=== PATIENT | female | born 1965 | race African-American/Black ===

== ENCOUNTER 2017-07-08 06:02 | Emergency (ER) | payer MEDICARE, OTHER ==
[~2017-07-08] VITALS: Ht 167.6 cm; Wt 80.4 kg
[~2017-07-08 06:02] MED LIST: ATOR10TA15 PO; LEVO75TA3 PO; MECL-62 PO; MOTR200T PO; PRED2.5T PO; ZOLP10TA3 PO
[2017-07-08 06:06] VITALS: BP 140/89; PULSE 115; RESP 20; TEMP 99.5; O2SAT 97
[2017-07-08 06:12] VITALS: BP 140/89; PULSE 115; RESP 20; TEMP 99.5; O2SAT 97
[2017-07-08] MEDS ORDERED: diphenhydrAMINE HCL 50 MG/ML VIAL IVP ONE (06:15)
[2017-07-08] MEDS ORDERED: SODIUM CHLORIDE 0.9% FLUSH 10 ML FLUSH IV FLUSH PRN (06:15)
[2017-07-08] MEDS ORDERED: EPINEPHrine HCL (1:1000) 1 MG/ML VIAL IM ONE (06:15)
[2017-07-08] MEDS ORDERED: methylPREDNISolone SOD SUCC 125 MG/2 ML VIAL IV PUSH ONE (06:15)
[2017-07-08] MEDS ORDERED: FAMOTIDINE 20 MG/2 ML VIAL IV PUSH ONE (06:15)
--- NOTE | 2017-07-08 06:22 | PD ---
HPI Chief Complaint: Allergic/Adverse Reaction Time Seen by Provider: 06:13 Travel History International Travel<30 days: No Contact w/Intl Traveler<30days: No Traveled to known affect area: No History of Present Illness HPI 51-year-old female presents to the emergency department by private transportation for complaint of progressively worsening urticarial allergic reaction since Friday. Patient is not aware of what may be the precipitating allergen. Patient denies any medications foods detergents pets dander. Patient denies any pain. Patient denies any lip tongue or throat swelling but has noted some tingling in her lips which is noted. Patient denies any shortness of breath or wheezing. Patient denies any chest pain or near syncope. Patient has taken Benadryl without relief of symptoms. Patient denies other concerns or complaints although patient does have chronic seasonal and environmental allergens that are also problematic at this time. PFSH Past Medical History Narrative Medical Dyslipidemia Sarcoidosis hypothyroidism vertigo seasonal/environmental allergens hysterectomy no tobacco use nursing notes reviewed Cancer: No Cardiovascular Problems: No Diabetes: No Diminished Hearing: No Endocrine: Yes Genitourinary: No Hepatitis: No Hiatal Hernia: No Immune Disorder: No Musculoskeletal: No Neurologic: Yes (VERTIGO (EAR CRYSTAL ISSUES) RESOLVED) Psychiatric: No Reproductive: No Respiratory: Yes (HEMOPTYSIS, ?SARCOID) Thyroid Disease: Yes Past Surgical History AICD: No Gynecologic Surgery: Yes (HYSTERECTOMY) Hysterectomy: Yes Joint Replacement: No Pacemaker: No Social History Alcohol Use: No Tobacco Use: No Substance Use: No Allergies-Medications (Allergen,Severity, Reaction): Coded Allergies: naproxen (Unverified Allergy, Intermediate, NAUSEA/VOMITING, 07/08/17) 12/06/15 DENIES ALLERGY Sulfa (Sulfonamide Antibiotics) (Unverified Allergy, Unknown, 07/08/17) 09/12/15 DENIES ALLERGY *MDRO Multi-Drug Resistant Organism (Verified Adverse Reaction, Unknown, 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 Reported Meds & Prescriptions Reported Meds & Active Scripts Active Epipen 2-Bird Inj (Epinephrine) 0.3 Mg/0.3 Ml Pfpen 0.3 Mg IM ONCE PRN Medrol Dosepak (Methylprednisolone) 4 Mg Dspk 4 Mg PO DIRECTED Per Pharmacist direction Reported Hydroxyzine HCl 50 Mg Tab 50 Mg PO BID Baclofen 10 Mg Tab 10 Mg PO Q8HR Pantoprazole (Pantoprazole Sodium) 40 Mg Tab 40 Mg PO DAILY Ibuprofen 800 Mg Tab 800 Mg PO Q6HR PRN Symbicort Inh (Budesonide/Formoterol Fumarate) 80-4.5 Mcg/Act Aero 2 Puff INH Q12HR Levothyroxine (Levothyroxine Sodium) 50 Mcg Tab 50 Mcg PO DAILY Review of Systems Except as stated in HPI: all other systems reviewed are Neg Physical Exam Narrative GENERAL: Well-developed well-nourished female in no acute distress no respiratory distress; no stridor or hoarseness. SKIN: Warm and dry. Diffuse urticaria HEAD: Normocephalic. EYES: No scleral icterus. No injection or drainage. NECK: Supple, trachea midline. No JVD or lymphadenopathy. CARDIOVASCULAR: Increased Regular rate and rhythm without murmurs, gallops, or rubs. RESPIRATORY: Breath sounds equal bilaterally. No accessory muscle use. GASTROINTESTINAL: Abdomen soft, non-tender, nondistended. MUSCULOSKELETAL: No cyanosis, or edema. BACK: Nontender without obvious deformity. No CVA tenderness. Data Data Last Documented VS Vital Signs Date Time Temp Pulse Resp B/P (MAP) Pulse Ox O2 Delivery O2 Flow Rate FiO2 07/08/17 06:39 98 07/08/17 06:33 108 07/08/17 06:15 Room Air 07/08/17 06:12 99.5 20 Orders Orders Ecg Monitoring (07/08/17 06:13) Iv Access Insert/Monitor (07/08/17 06:13) Oximetry (07/08/17 06:13) Diphenhydramine Inj (Benadryl Inj) (07/08/17 06:15) Methylprednisolone So Succ Inj (Solumedr (07/08/17 06:15) Famotidine Inj (Pepcid Inj) (07/08/17 06:15) Sodium Chloride 0.9% Flush (Ns Flush) (07/08/17 06:15) Epinephrine (1:1000) Inj (Adrenalin (1:1 (07/08/17 06:15) MDM Medical Decision Making Medical Screen Exam Complete: Yes Emergency Medical Condition: Yes Medical Record Reviewed: Yes Differential Diagnosis Acute allergic reaction, idiopathic urticaria, adverse medication reaction Narrative Course Patient placed on cardiac exercise specialist IV access obtained with continuous pulse oximetry patient administered Epi 1:1000 given 0.3 ml IM Benadryl 25 mg IV Solu- Medrol 125 mg IV and Pepcid 20 mg IV Diagnosis Primary Impression: Acute allergic reaction Qualified Codes: T78.40XA - Allergy, unspecified, initial encounter Referrals: Primary Care Physician call for appointment Patient Instructions: General Instructions Additional Instructions: Increase fluid hydration Take Benadryl 25-50 mg as often as every 4-6 hours as needed for hives or allergic reaction Takes Zantac 150 twice daily for 7 days Complete course of steroid as prescribed as taper Take EpiPen and use as needed for acute allergic reaction to the nearest emergency department Follow-up with her primary care provider No work 2 days Increase fluid hydration avoid hot foods and beverages Med/Other Pt SpecificInfo: Prescription(s) given Scripts Epinephrine Inj (Epipen 2-Bird Inj) 0.3 Mg/0.3 Ml Pfpen 0.3 MG IM ONCE Y for ALLERGIC REACTION, #1 PACK 0 Refills Prov: Buffy Anton MD 07/08/17 Methylprednisolone Dosepak (Medrol Dosepak) 4 Mg Dspk 4 MG PO DIRECTED, #1 DSPK 0 Refills Per Pharmacist direction Prov: Buffy Anton MD 07/08/17 Disposition: 01 DISCHARGE HOME Condition: Stable Buffy Anton MD Jul 08, 2017 06:22
[2017-07-08 06:39] VITALS: O2SAT 98
[2017-07-08] MEDS ORDERED: PANT40TA3 PO (06:51)
[2017-07-08] MEDS ORDERED: HYDR50TA94 PO (06:51)
[2017-07-08] MEDS ORDERED: BACL10TA PO (06:51)
[2017-07-08] MEDS ORDERED: IBUP1TAB7 PO (06:51)
[2017-07-08] MEDS ORDERED: SYMB80AE INH (06:51)
[2017-07-08] MEDS ORDERED: LEVO50TA4 PO (06:51)
[2017-07-08] MEDS ORDERED: EPIP0.3I IM (06:56)
[2017-07-08] MEDS ORDERED: MEDR4PAK PO (06:56)
[2017-07-08 07:00] VITALS: BP 171/87; PULSE 110; RESP 16; O2SAT 98
[2017-07-08 07:25] VITALS: BP 166/81
--- NOTE | 2017-07-08 07:34 | PD ---
Data Data Last Documented VS Vital Signs Date Time Temp Pulse Resp B/P (MAP) Pulse Ox O2 Delivery O2 Flow Rate FiO2 07/08/17 07:25 105 16 166/81 (109) 07/08/17 07:00 98 Room Air 07/08/17 06:12 99.5 Orders Orders Ecg Monitoring (07/08/17 06:13) Iv Access Insert/Monitor (07/08/17 06:13) Oximetry (07/08/17 06:13) Diphenhydramine Inj (Benadryl Inj) (07/08/17 06:15) Methylprednisolone So Succ Inj (Solumedr (07/08/17 06:15) Famotidine Inj (Pepcid Inj) (07/08/17 06:15) Sodium Chloride 0.9% Flush (Ns Flush) (07/08/17 06:15) Epinephrine (1:1000) Inj (Adrenalin (1:1 (07/08/17 06:15) Ed Discharge Order (07/08/17 07:34) MDM Supervised Visit with JÚNIOR: No Narrative Course Patient seen and examined by me briefly, is a patient was seen by previous provider. Patient has history of allergic hives, was treated is now feeling better and would like to be discharged. On my exam she is alert and awake and oriented protecting her airway and her hives resolved. SHe stable for discharge Diagnosis Primary Impression: Acute allergic reaction Qualified Codes: T78.40XA - Allergy, unspecified, initial encounter Referrals: Primary Care Physician call for appointment Patient Instructions: General Instructions Departure Forms: Tests/Procedures Additional Instruction: Increase fluid hydration Take Benadryl 25-50 mg as often as every 4-6 hours as needed for hives or allergic reaction Takes Zantac 150 twice daily for 7 days Complete course of steroid as prescribed as taper Take EpiPen and use as needed for acute allergic reaction to the nearest emergency department Follow-up with her primary care provider No work 2 days Increase fluid hydration avoid hot foods and beverages Scripts Epinephrine Inj (Epipen 2-Bird Inj) 0.3 Mg/0.3 Ml Pfpen 0.3 MG IM ONCE Y for ALLERGIC REACTION, #1 PACK 0 Refills Prov: Buffy Anton MD 07/08/17 Methylprednisolone Dosepak (Medrol Dosepak) 4 Mg Dspk 4 MG PO DIRECTED, #1 DSPK 0 Refills Per Pharmacist direction Prov: Buffy Anton MD 07/08/17 Disposition: 01 DISCHARGE HOME Condition: Stable El Vanegas MD Jul 08, 2017 07:34
== END 2017-07-08 07:25 | disposition home or self-care (01) ==
LOC: PHED 06:02
DX: T78.40XA Allergy, unspecified, initial encounter (principal)
CPT/HCPCS: 96372; 96374; 96375; 99284; J0171; J1200; J2930